=== PATIENT | female | born 1960 ===

== ENCOUNTER 2017-09-22 17:59 | Emergency (ER) | payer BC ==
[2017-09-22 18:07] VITALS: BP 152/72; PULSE 56; RESP 18; TEMP 97.7; O2SAT 100
--- NOTE | 2017-09-22 18:54 | ED PDOC ---
Lower Extremity Pain/Injury Time Seen by Provider: 09/22/17 18:15 Chief Complaint (Nursing): Lower Extremity Problem/Injury Chief Complaint (Provider): Right calf and knee pain History Per: Patient History/Exam Limitations: no limitations Onset/Duration Of Symptoms: Days (x 4) Current Symptoms Are (Timing): Still Present Additional Complaint(s): 57 year old female presents to the ED complaining of right leg pain. She describes the pain as constant and throbbing for the last 4 days. Patient reports she has been taking Motrin, Aleve and Tylenol for pain with minimal relief. Her last dose of Tylenol was early this morning. Her most recent travel was 3 weeks ago to the [place]. Patient states she is unable to bear weight on right leg and has pain on movement of leg. She denies any injury or fall. PMD: Dr. Fung Past Medical History Reviewed: Historical Data, Nursing Documentation, Vital Signs Vital Signs: Last Vital Signs Temp 97.7 F 09/22/17 18:04 Pulse 56 L 09/22/17 18:04 Resp 18 09/22/17 18:04 BP 152/72 H 09/22/17 18:04 Pulse Ox 100 09/22/17 18:04 - Medical History PMH: HTN - Surgical History Other surgeries: right knee - Family History Family History: States: Unknown Family Hx - Home Medications Home Medications: Ambulatory Orders Medication Instructions Recorded Cyclobenzaprine [Cyclobenzaprine 10 mg PO TID PRN #20 tab 09/22/17 HCl] Naproxen [Naprosyn] 500 mg PO BID #20 tab 09/22/17 - Allergies Allergies/Adverse Reactions: Allergies Allergy/AdvReac Type Severity Reaction Status Date / Time No Known Allergies Allergy Verified 09/22/17 18:03 Review of Systems ROS Statement: Except As Marked, All Systems Reviewed And Found Negative Musculoskeletal: Positive for: Leg Pain (right calf and knee) Physical Exam - Reviewed Nursing Documentation Reviewed: Yes Vital Signs Reviewed: Yes - Physical Exam Appears: Positive for: Well, Non-toxic, No Acute Distress Head Exam: Positive for: ATRAUMATIC, NORMAL INSPECTION, NORMOCEPHALIC Skin: Positive for: Normal Color Eye Exam: Positive for: Normal appearance Extremity: Positive for: Tenderness, Swelling (in the right calf ), Other ( decreased ROM at right knee). Negative for: Normal ROM Neurologic/Psych: Positive for: Alert, Oriented - ECG O2 Sat by Pulse Oximetry: 100 (RA) Pulse Ox Interpretation: Normal - CT Scan/US Dopple right leg Other Rad Studies (CT/US): Read By Radiologist Other Rad Interpretation: No DVT, read by [facility] Medical Decision Making Medical Decision Making: Time: 18:47 Clinical Impression: 57 year old female with right leg pain Initial Plan: --Toradol 30 mg IM --Duplex right lower extremity Time: 20:20 US Duplex Right Lower Extr: FINDINGS: Deep veins: Unremarkable. No DVT in the visualized common femoral, femoral, proximal deep femoral or popliteal veins. The veins demonstrate normal color flow, are normally compressible, with normal phasic flow and/or augmentation response. Superficial veins: Unremarkable. No thrombus in the visualized great saphenous vein. Soft tissues: No acute findings. No popliteal cyst. IMPRESSION: No deep venous thrombosis of the right lower extremity. Patient is aware of ultrasound findings , all questions answered. She reports some improvement pain after Toradol injection. Prescriptions provided for tramadol and Flexeril. Patient was referred to orthopedist lubrication supervisor for follow up. Scribe Attestation: Documented by Lavern Simental, acting as a scribe for Joanne Carrington PA-C Provider Scribe Attestation: All medical record entries made by the Scribe were at my direction and personally dictated by me. I have reviewed the chart and agree that the record accurately reflects my personal performance of the history, physical exam, medical decision making, and the department course for this patient. I have also personally directed, reviewed, and agree with the discharge instructions and disposition. Disposition - Clinical Impression Clinical Impression: Strain of calf muscle - Patient ED Disposition Is Patient to be Admitted: No - Disposition Referrals: Chris Stone III, MD [Staff Provider] - Disposition: Routine/Home Disposition Time: 20:46 Condition: STABLE Additional Instructions: Rest, ice and elevate affected area. Take prescription medications as directed as needed for pain. Follow up with primary doctor or orthopedist for any persistent symptoms. Prescriptions: Cyclobenzaprine [Cyclobenzaprine HCl] 10 mg PO TID PRN #20 tab PRN Reason: Muscle Spasm Naproxen [Naprosyn] 500 mg PO BID #20 tab Instructions: Muscle Strain (ED), Leg Pain (ED) Forms: [facility] (Croatian)
--- NOTE | 2017-09-23 09:28 | US ---
PROCEDURE: Right lower extremity venous duplex Doppler. HISTORY: calf swelling and tenderness, rule out DVT COMPARISON: None available. TECHNIQUE: Common femoral, superficial femoral, popliteal and posterior tibial veins were evaluated. Flow was assessed with color Doppler, compressibility, assessment of phasic flow and augmentation response. FINDINGS: COMMON FEMORAL VEIN: Unremarkable. SUPERFICIAL FEMORAL VEIN: Unremarkable. POPLITEAL VEIN: Unremarkable. POSTERIOR TIBIAL VEIN: Unremarkable. OTHER FINDINGS: None. IMPRESSION: No evidence of deep venous thrombosis in the right lower extremity. Concordant results (preliminary interpretation) provided by [facility]. Procedure Completed: 19:40 Preliminary ([facility]) Report: Dictated and Authenticated: 20:20 Final Interpretation: 09:26 September 23, 2017.
== END 2017-09-22 22:03 | disposition home or self-care (01) ==
LOC: H.ER 17:59
DX: M79.604 Pain in right leg (principal); I10 Essential (primary) hypertension
CPT/HCPCS: 93971; 96372; 99282; J1885